=== PATIENT | female | born 1960 | race Caucasian/White ===

== ENCOUNTER 2018-03-17 15:25 | Outpatient (RCR) | payer BC ==
[~2018-03-17 15:25] MED LIST: AMIO400T5 PO; ASCO-262 PO; ASPI-933 PO; ATEN-156 PO; ATEN25TA PO; ATEN50TA PO; CALC-613 PO; CALC-80 PO; CLOP75TA PO; DABI75CA3 PO; DIGO250T PO; DILT240C PO; E400C PO; FLAX100031 PO; HCT25T PO; LISI10TA2 PO; LTN005OP2 OP; MAGN250T7 PO; NIAC500T6 PO; OMG1KC PO; POTA99TA7 PO; SIMV40TA2 PO; SITA100T PO; VITA1CAP59 PO; VNL75CCR PO
== END 2018-04-28 10:23 | disposition home or self-care (01) ==
PROVIDERS: ATTEND Orthopaedic Surgery
DX: M16.12 Unilateral primary osteoarthritis, left hip (principal); M51.36 Other intervertebral disc degeneration, lumbar region; M51.37 Other intervertebral disc degeneration, lumbosacral region

== ENCOUNTER 2022-11-08 08:41 | Outpatient (RCR) | payer BC | END 2022-11-15 | disposition home or self-care (01) | PROVIDERS: ATTEND Family Medicine | DX: M51.16 Intervertebral disc disorders with radiculopathy, lumbar region (principal); E11.9 Type 2 diabetes mellitus without complications; J45.909 Unspecified asthma, uncomplicated; I11.9 Hypertensive heart disease without heart failure ==

== ENCOUNTER 2022-12-09 15:43 | Outpatient (RCR) | payer BC | END 2022-12-16 | disposition home or self-care (01) | PROVIDERS: ATTEND Family Medicine | DX: M51.16 Intervertebral disc disorders with radiculopathy, lumbar region (principal); J45.909 Unspecified asthma, uncomplicated; I11.9 Hypertensive heart disease without heart failure ==